=== PATIENT | female | born 1965 | race Caucasian/White ===

== ENCOUNTER → 2017-05-01 | Outpatient (CLI) | payer BC ==
--- NOTE | ~2017-05-01 | MY29 ---
[facility] A Service of [facility] & [facility] RADIOLOGY TEXT RESULTS PATIENT: ENRIQUE MILLARD LOCATION: [facility] : 65 UNIT #: [id number] AGE: [address]: DESTIN COLBERT APRN SEX: F ORDER DR: [id number] [facility] [address] [place], [place] [address] [id number] O MR#: [id number] #: [id number] NAME: ENRIQUE MILLARD : 1965 SEX: F STUDY DATE/TIME: 05/01/2017 15:38 UNIT: [facility] ROOM: STUDY DESCRIPTION: CRISTHIAN STEPHAN SCREENING W/ CAD BILAT Attending Physician: Destin Colbert Aprn Referring Physician: Destin Colbert Aprn Ordering Physician: Destin Colbert Aprn Primary Care Physician: Destin Colbert Aprn MEDICAL IMAGING REPORT This report is preliminary unless electronic signature is present EXAM Bilateral digital screening mammogram with CAD 05/01/2017 INDICATION 51-year-old female for routine screening. No reported problems. No personal or family history of breast cancer. No surgeries. TECHNIQUE CC and MLO views were obtained and reviewed with an FDA-approved CAD device. COMPARISON 11/02/2015, 11/09/2014, 08/22/2013. FINDINGS Breast parenchyma is heterogeneously dense. This degrades sensitivity of screening mammography. The pattern is unchanged. No new suspicious cluster of microcalcifications. In the upper outer central right breast, there are 2 enlarging masses that in aggregate measure up to 2.9 cm on the CC projection likely enlarging or new cysts. On the left, in the central left breast localizing just above the posterior nipple line on the MLO projection are 2 new or enlarging masses also likely representing cysts. These measure 2.7 and 1.3 cm respectively. Suggest targeted ultrasound of both breasts for further assessment. Additional mammographic views are not likely to offer additional diagnostic information and ultrasound is recommended for further assessment. There is otherwise no new suspicious mass in either breast. Smaller nodular densities bilaterally appear stable. IMPRESSION New or enlarging masses in both breasts. These likely represent cysts given the history of cysts in this patient but should be further evaluated [facility] & [facility] RADIOLOGY TEXT RESULTS PATIENT: ENRIQUE MILLARD LOCATION: [facility] : 65 UNIT #: [id number] AGE: [address]: DESTIN COLBERT APRN SEX: F ORDER DR: with bilateral targeted ultrasound. Patients over the age of 40 are entered into a reminder system with target due date for the next mammogram. A result letter will also be sent to the patient. BIRADS: 0 Incomplete: Need additional imaging evaluation and/or prior mammograms for comparison Dictated by... Jesus Gerardo M.D. THIS IS AN ELECTRONICALLY VERIFIED REPORT Jesus Gerardo M.D. at 05/02/2017 11:27 AM RICHARD/fay TD: 05/02/2017 09:56 JOB #: [id number] MEDICAL IMAGING REPORT Page 1 of 1 COPY
== END | disposition home or self-care (01) ==
LOC: CWCC 08:45
DX: Z12.31 Encounter for screening mammogram for malignant neoplasm of breast (principal); N63 Unspecified lump in breast; Z87.898 Personal history of other specified conditions
CPT/HCPCS: G0202

== ENCOUNTER → 2017-05-18 | Outpatient (CLI) | payer BC ==
--- NOTE | ~2017-05-18 | US17 ---
[facility] A Service of [facility] & [facility] RADIOLOGY TEXT RESULTS PATIENT: ENRIQUE MILLARD LOCATION: [facility] : 65 UNIT #: [id number] AGE: [address]: DESTIN COLBERT APRN SEX: F ORDER DR: [id number] [facility] [address] [place], [place] [address] [id number] O MR#: [id number] #: [id number] NAME: ENRIQUE MILLARD : 1965 SEX: F STUDY DATE/TIME: 05/18/2017 9:32 UNIT: [facility] ROOM: STUDY DESCRIPTION: US Breast Bilateral Attending Physician: Destin Colbert Aprn Referring Physician: Destin Colbert Aprn Ordering Physician: Destin Colbert Aprn Primary Care Physician: Destin Colbert Aprn MEDICAL IMAGING REPORT This report is preliminary unless electronic signature is present EXAM Targeted bilateral breast ultrasound, 05/18/2017. INDICATIONS 51-year-old female recalled for targeted ultrasound of the breasts secondary to new or enlarging masses in both breasts, likely cysts given a history of cysts in this patient. COMPARISON Ultrasound 12/08/2015. Mammography 05/01/2017. TECHNIQUE Targeted ultrasound of the right breast and of the left breast was performed. The patient is initially scanned independently by the technologist and then rescanned in my presence. FINDINGS RIGHT BREAST: Imaging of the right breast demonstrates a dominant septated cyst 5 cm from nipple at 11 o'clock measuring up to 2.9 cm. This corresponds with the dominant nodule in the right breast at the same clock position. Imaging findings are concordant. Additional benign cyst at the same clock position measures 5-6 mm. There is also a benign cyst at 3 o'clock measuring 13 mm. LEFT BREAST: In the 3 o'clock position left breast 8 cm from the nipple, there is a benign macrocyst measuring up to 2.3 cm. This corresponds to the dominant cyst in the same clock position on the patient's mammogram. There are 2 additional cysts at 2 o'clock in the left breast; 1 measures 12 mm and the second measures up to 14 mm. The 12-mm cyst demonstrates internal echoes, most characteristic of a complicated cyst with internal debris. There is no internal color-flow. It does, however, warrant followup imaging in 6 months to reassess stability. There is also a tiny cyst at 2 o'clock measuring about 4-5 mm. There is an additional cyst at [facility] A Service of [facility] RADIOLOGY TEXT RESULTS PATIENT: ENRIQUE MILLARD LOCATION: [facility] : 65 UNIT #: [id number] AGE: [address]: DESTIN COLBERT APRN SEX: F ORDER DR: 12 o'clock in the left breast with internal echoes but no internal color-flow. Dimensions are approximately 8 x 7 mm, most characteristic of a complicated cyst but warranting interval followup. IMPRESSION 1. There is a dominant macrocyst with a septation at 11 o'clock in the right breast measuring 2.9 cm. This is concordant with mammography and benign, with no additional followup necessary. 2. Macrocystic at 3 o'clock in the left breast measuring up to 2.3 cm, also concordant with mammography and benign and requiring no additional follow up. 3. At 2 o'clock in the left breast, there is a benign cyst measuring up to 14 x 12 mm. This is also benign. Adjacent to it is a 4-5 mm benign cyst. These are both benign and require no additional follow up. 4. There are 2 complicated cysts in the left breast both of which require followup imaging with ultrasound in 6 months to reassess stability. 1 is in the 2 o'clock position left breast measuring about 12 x 11 mm. The second is at 12 o'clock measuring about 8 mm. 6-month followup ultrasound recommended for reassessment of stability. 5. Findings and recommendations discussed with the patient. Patients over the age of 40 are entered into a reminder system with target due date for the next mammogram. A result letter will also be sent to the patient. BIRADS: 3 Probably benign finding; short interval followup suggested. Dictated by... Jesus Gerardo M.D. THIS IS AN ELECTRONICALLY VERIFIED REPORT Jesus Gerardo M.D. at 05/18/2017 4:10 PM RICHARD/rusty TD: 05/18/2017 14:49 JOB #: [id number] MEDICAL IMAGING REPORT Page 1 of 1 COPY
== END | disposition home or self-care (01) ==
LOC: CWCC 09:05
DX: N63 Unspecified lump in breast (principal); N60.02 Solitary cyst of left breast; N60.01 Solitary cyst of right breast
CPT/HCPCS: 76641